=== PATIENT | male | born 1975 | race Caucasian/White ===

== ENCOUNTER 2016-05-28 09:31 | Inpatient (IN) | payer OTHER ==
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
[2016-05-28] MEDS ORDERED: CITRATE DEXTROSE SOLN 500 ML BAG ONE (10:21)
[2016-05-28] MEDS ORDERED: BUPIVACAINE 0.5% 30 ML SDV ONE (10:21)
[2016-05-28] MEDS ORDERED: ETOMIDATE 20 MG/10 ML VIAL ONE ×3 (10:34→10:36)
[2016-05-28] MEDS ORDERED: fentaNYL 250 MCG/5 ML INJ ONE (10:34)
[2016-05-28] MEDS ORDERED: PROPOFOL/EMULSION 500 MG/50 ML BOTTLE IV ONE (10:35)
[2016-05-28] MEDS ORDERED: ALBUMIN 5% 250 ML BOTTLE IV ONE (10:56)
[2016-05-28] MEDS ORDERED: ERTAPENEM 1 GM in NS 100 ML IV ONE (11:00)
[2016-05-28] MEDS ORDERED: MIDAZOLAM 2 MG/2 ML VIAL ONE (11:01)
[2016-05-28] MEDS ORDERED: HYDROmorphONE/DILAUDID 2 MG/ML INJ ONE (11:29)
[2016-05-28] MEDS ORDERED: PROPOFOL 200 MG/20 ML VIAL ONE (11:47)
[2016-05-28] MEDS ORDERED: PROPOFOL/EMULSION 1,000 MG/100 ML BOTTLE IV ONE (12:11)
[2016-05-28] MEDS ORDERED: fentanYL/NACL/100 ML BAG IV ONE (12:14)
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
[2016-05-28 12:47] LABS: HEMATOCRIT 34.4 % (40.0-51.0); HEMOGLOBIN 11.1 g/dL (13.7-17.5); MEAN CELL HEMOGLOBIN 28.5 pg (27.9-34.1); MEAN CELL HEMOGLOBIN CONCENTR. 32.3 g/dL (32.4-36.7); MEAN CELL VOLUME 88.2 fL (81.5-99.8); RED BLOOD CELL COUNT 3.9 10^6/uL (4.40-6.38); RED CELL DISTRIBUTION WIDTH 14.7 % (11.5-15.2)
[2016-05-28] MEDS ORDERED: NALOXONE HCL 0.4 MG/ML INJ IVP PRN (12:53)
[2016-05-28] MEDS ORDERED: LORazepam 2 MG/ML INJ IVP PRN (12:53)
[2016-05-28] MEDS ORDERED: ONDANSETRON 4 MG/2 ML VIAL IVP PRN (12:53)
[2016-05-28] MEDS: fentaNYL/NACL 100 ML IV SCH ×2 (13:30→19:55)
[2016-05-28] MEDS: FAMOTIDINE 20 MG/NACL 50 ML IV SCH ×2 (13:47→21:13)
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
[2016-05-28] MEDS ORDERED: LIDO/BUPIVA/morphINE 15ML SYR IU ONE (14:00)
[2016-05-28] MEDS ORDERED: LIDO/BUPIVA 10ML SYR IU ONE (14:00)
[2016-05-28 14:49] LABS: BASE EXCESS -2.6 mEq/L (-2.5-2.5); BICARBONATE 24 mEq/L (22-26); MEASURED OXYGEN SATURATION 97 % (92-95); PCO2 50 mmHg (34-38); PO2 108 mmHg (65-75); TCO2 25 mEq/L (23-27)
[2016-05-28 14:50] LABS: O2 CONCENTRATIION 70 % (0-100); P/F RATIO 154 RATIO; PRESSURE SUPPORT 7; SIMV YES
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
[2016-05-28] MEDS: LR 1,000 ML IV SCH ×2 (16:09→19:55)
[2016-05-28 16:49] LABS: BASE EXCESS -1.1 mEq/L (-2.5-2.5); BICARBONATE 24 mEq/L (22-26); MEASURED OXYGEN SATURATION 95 % (92-95); PCO2 43 mmHg (34-38); PO2 79 mmHg (65-75); TCO2 25 mEq/L (23-27)
[2016-05-28 16:50] LABS: END TIDAL CO2 48; O2 CONCENTRATIION 40 % (0-100); P/F RATIO 198 RATIO; PATIENT RATE 18; PRESSURE SUPPORT 7; SIMV YES
[2016-05-28] MEDS: PROPOFOL/EMULSION 100 ML IV SCH (17:05)
[2016-05-29] MEDS: PROPOFOL/EMULSION 100 ML IV SCH (01:11)
[2016-05-29] MEDS: LR 1,000 ML IV SCH ×3 (01:12→17:46)
[2016-05-29] MEDS: fentaNYL/NACL 100 ML IV SCH (03:11)
[2016-05-29 03:17] LABS: HEMATOCRIT 29.8 % (40.0-51.0); HEMOGLOBIN 9.8 g/dL (13.7-17.5)
[2016-05-29 04:20] LABS: ANION GAP 6 mEq/L (8-16); CALCIUM 8.2 mg/dL (8.5-10.4); CARBON DIOXIDE 26 mEq/l (22-31); CHLORIDE 107 mEq/L (97-110); CREATININE 0.6 mg/dL (0.7-1.3); GLOMERULAR FILTRATION RATE > 60; GLUCOSE 134 mg/dL (70-100); POTASSIUM 4.1 mEq/L (3.5-5.2); SODIUM 139 mEq/L (134-144)
[2016-05-29 05:08] LABS: BASE EXCESS 1.8 mEq/L (-2.5-2.5); BICARBONATE 26 mEq/L (22-26); MEASURED OXYGEN SATURATION 96 % (92-95); PCO2 43 mmHg (34-38); PO2 82 mmHg (65-75); TCO2 27 mEq/L (23-27)
[2016-05-29 05:10] LABS: CPAP YES; O2 CONCENTRATIION 40 % (0-100); P/F RATIO 205 RATIO
[2016-05-29 05:11] LABS: END TIDAL CO2 53; PATIENT RATE 17; PRESSURE SUPPORT 7
[2016-05-29] MEDS: FAMOTIDINE 20 MG/NACL 50 ML IV SCH ×2 (09:46→21:20)
[2016-05-29 13:15] LABS: HEMATOCRIT 33.1 % (40.0-51.0); HEMOGLOBIN 10.7 g/dL (13.7-17.5)
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
[2016-05-30] MEDS: LR 1,000 ML IV SCH (01:32)
[2016-05-30 08:31] LABS: ANION GAP 7 mEq/L (8-16); CALCIUM 8.3 mg/dL (8.5-10.4); CARBON DIOXIDE 28 mEq/l (22-31); CHLORIDE 99 mEq/L (97-110); CREATININE 0.6 mg/dL (0.7-1.3); GLOMERULAR FILTRATION RATE > 60; GLUCOSE 120 mg/dL (70-100); SODIUM 134 mEq/L (134-144)
[2016-05-30] MEDS: FAMOTIDINE 20 MG/NACL 50 ML IV SCH ×2 (09:50→20:35)
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
[2016-05-30] MEDS: D5W 1/2 NS W/ 20 KCl/L 1,000 ML IV SCH ×2 (11:25→20:35)
[2016-05-31] MEDS: D5W 1/2 NS W/ 20 KCl/L 1,000 ML IV SCH ×2 (05:04→16:08)
[2016-05-31] MEDS: FAMOTIDINE 20 MG/NACL 50 ML IV SCH ×2 (09:23→21:15)
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
[2016-05-31 13:42] LABS: ANION GAP 7 mEq/L (8-16); CALCIUM 8.1 mg/dL (8.5-10.4); CARBON DIOXIDE 29 mEq/l (22-31); CHLORIDE 100 mEq/L (97-110); CREATININE 0.5 mg/dL (0.7-1.3); GLOMERULAR FILTRATION RATE > 60; GLUCOSE 117 mg/dL (70-100); POTASSIUM 3.8 mEq/L (3.5-5.2); SODIUM 136 mEq/L (134-144)
[2016-06-01] MEDS: D5W 1/2 NS W/ 20 KCl/L 1,000 ML IV SCH (01:48)
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
[2016-06-01] MEDS: FAMOTIDINE 20 MG/NACL 50 ML IV SCH ×2 (09:26→21:21)
[2016-06-01] MEDS: HYDROCODONE/APAP 5/325 TAB PO PRN ×3 (13:40→21:21)
[2016-06-02] MEDS: HYDROCODONE/APAP 5/325 TAB PO PRN ×2 (04:01→10:41)
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
[2016-06-02 08:48] VITALS: BP 135/83; PULSE 95; RESP 16; TEMP 98.6
[2016-06-02] MEDS ORDERED: CETIRIZINE 10 MG TAB PO SCH (09:00)
[2016-06-02] MEDS ORDERED: FAMOTIDINE 20 MG TAB PO SCH (09:00)
[2016-06-02 09:42] VITALS: O2SAT 83
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
== END 2016-06-02 13:29 | disposition home or self-care (01) | DRG 329 ==
LOC: UNDOADMIN 10:39 → F2N 12:08 → F3N 05-30 07:04
PROVIDERS: ADMIT Surgery; ATTEND Surgery
PROC: 0DT80ZZ Resection of Small Intestine, Open Approach (ICD-10-PCS; principal; 2016-05-28 10:00)
PROC: 0WQF0ZZ Repair Abdominal Wall, Open Approach (ICD-10-PCS; principal; 2016-05-28 10:00)
DX: S36.498A Other injury of other part of small intestine, initial encounter (principal); J96.01 Acute respiratory failure with hypoxia; K42.0 Umbilical hernia with obstruction, without gangrene; I95.81 Postprocedural hypotension; Q43.0 Meckel's diverticulum (displaced) (hypertrophic); V43.52XA Car driver injured in collision with other type car in traffic accident, initial encounter
CPT/HCPCS: 82947-QW; 92507-GN; 92523-GN; 97116-GP; 97161-GP; 97165-GO; 97535-GO; J1170; J1335; J2060; J2250; J2274; J2704; J3010; J7060; P9041